=== PATIENT | female | born 1940 | race Caucasian/White ===

== ENCOUNTER 2018-11-30 09:02 | Day surgery (SDC) | payer OTHER ==
[~2018-11-30 09:02] MED LIST: GABAPENTIN400 MG PO; KEFLEX250 MG PO; LIPITOR20 MG PO; METFORMIN HCL750 MG PO; TOPROL XL50 M1 PO; TYLENOL-CODEINE1 TA1 PO
[2018-11-30] MEDS ORDERED: KEFLEX250 MG PO (12:18)
[2018-11-30] MEDS ORDERED: ULTRACET PO (12:19)
== END 2018-11-30 14:15 | disposition home or self-care (01) ==
LOC: CIR.AMB 09:02
DX: N32.81 Overactive bladder (principal); N39.41 Urge incontinence